=== PATIENT | female | born 1960 | race Caucasian/White ===

== ENCOUNTER 2018-04-16 13:08 | Emergency (ER) | payer MEDICAID, OTHER ==
[~2018-04-16] VITALS: Ht 152.4 cm; Wt 56.2 kg
[~2018-04-16 13:08] MED LIST: ACET325T14 PO; DIAZ5TAB4 PO; IBUP-1223 PO; IMIP25TA3 PO
[2018-04-16] MEDS ORDERED: ACETAMINOPHEN 325 MG TABLET PO ONE (13:30)
[2018-04-16] MEDS ORDERED: DIPHENHYDRAMINE 50 MG/ML, 1ML IVPush ONE (13:30)
[2018-04-16] MEDS ORDERED: METOCLOPRAMIDE 5 MG/ML, 2ML IVPush ONE (13:30)
[2018-04-16] MEDS ORDERED: ACETAMINOPHEN 500 MG TABLET ONE (13:34)
[2018-04-16] MEDS ORDERED: METOCLOPRAMIDE 5 MG/ML, 2ML ONE (13:34)
[2018-04-16] MEDS ORDERED: DIPHENHYDRAMINE 50 MG/ML, 1ML ONE (13:34)
[2018-04-16 13:57] LABS: BASOPHILS # (AUTO) 0.03 x10^3/uL (0-0.1); BASOPHILS % (AUTO) 1 % (0-1); EOSINOPHILS # (AUTO) 0.14 x10^3/uL (0-0.4); EOSINOPHILS % (AUTO) 2 % (1-7); LYMPHOCYTES # (AUTO) 1.76 x10^3/uL (1-3.4); LYMPHOCYTES % (AUTO) 23 % (22-44); MD NO; MEAN CORPUSCULAR HEMOGLOBIN 21.8 pg (27.0-34.8); MEAN CORPUSCULAR HGB CONC 31.5 g/dL (32.4-35.8); MEAN CORPUSCULAR VOLUME 69.2 fL (80-100); MEAN PLATELET VOLUME 8.7 fL (7.4-10.4); MONOCYTES # (AUTO) 0.69 x10^3/uL (0.2-0.8); MONOCYTES % (AUTO) 9 % (2-9); NEUTROPHILS # (AUTO) 5.08 x10^3/uL (1.8-6.8); NEUTROPHILS % (AUTO) 66 % (42-75); PLATELET COUNT 338 x10^3/uL (130-400); RED BLOOD COUNT 5.36 x10^6/uL (3.82-5.3); RED CELL DISTRIBUTION WIDTH 15.6 % (9.6-15.2)
[2018-04-16 14:09] LABS: ALBUMIN 3.7 g/dL (3.4-5.0); ANION GAP 7 mmol/L (5-15); CALCIUM 8.2 mg/dL (8.5-10.1); CHLORIDE 107 mmol/L (98-107); CREATININE 0.72 mg/dL (0.55-1.02)
[2018-04-16 14:13] LABS: TROPONIN I < 0.015 ng/mL (0.000-0.045)
[2018-04-16 15:06] VITALS: BP 101/49
== END 2018-04-16 15:24 | disposition home or self-care (01) ==
LOC: ED 15:15
DX: J01.00 Acute maxillary sinusitis, unspecified (principal); R51 Headache
CPT/HCPCS: 36415; 70450; 71045; 80048; 82040; 84484; 85025; 93005; 96374; 96375; 99285; J1200; J2765